=== PATIENT | female | born 1950 | race Caucasian/White ===

== ENCOUNTER → 2023-05-07 11:07 | Outpatient (REF) | payer MEDICARE, SELFPAY ==
--- NOTE | 2023-05-07 11:05 | CA_ITS ---
Transthoracic Echocardiogram Patient (Last, First, Middle): Abbey Macdonald, Gender: Female Date of : 1950 Age: 72 Procedure Date: 05/07/2023 Procedure Type: Transthoracic Echocardiogram Location: [place] Height: 162.56 cm Weight: 60.78 kg BSA: 1.65 m2 Heart Rate: bpm BP: 116 / 60 mmHg Warm In Worker: Referring MD: Symone Mclean MD Chair Car Attendant: Seymour Olivas MD Symptoms: R01.1 CARDIAC MURMUR Study Quality: Good ECG Rhythm: Sinus Conclusions: - 1. Normal LV systolic function with LVEF of 60 65% with impaired relaxation filling pattern 2. Early mild aortic stenosis 3. Normal RV systolic pressure 4. Upper limits of normal ascending aortic size 5. No pericardial effusion Findings Left Ventricle Normal left ventricular size, thickness, and systolic function. The visually estimated ejection fraction is between 60-65%. Spectral Doppler is indicative of an impaired relaxation filling pattern. E/E prime ratio is between 8 and 15 consistent with indeterminate filling pressures. Peak GLS is -17.0%, borderline low. Right Ventricle Normal right ventricular cavity size and systolic function. Atria Both atria are normal in size. There is no evidence of interatrial shunt. Aortic Valve The aortic valve was not well visualized. There is mild calcification of the aortic valve. There is mild thickening of the aortic valve. The peak aortic gradient is 14 mmHg.The mean gradient is 8 mmHg. The aortic valve area is 1.78 cm2. There is no aortic valve regurgitation. Mitral Valve Normal mitral valve structure and function. There is mild mitral annular calcification. There is trace mitral valve regurgitation. There is no mitral valve stenosis. Pulmonic Valve The pulmonic valve is likely normal. Tricuspid Valve Normal tricuspid valve structure. There is trace tricuspid valve regurgitation. The right ventricular systolic pressure is 19 mmHg. Normal right atrial pressure. There is no evidence of pulmonary hypertension. Great Vessels The pulmonary artery was not well visualized. Venous The inferior vena cava is normal in size and collapses greater than 50% with inspiration. Pericardium/Pleural There is no evidence of pericardial effusion. Prior Study Comparison No prior study available for comparison. Measurements 2D Linear Measurements IVSd: 1.01 0.6-0.9/0.6-1.0 cm LVIDd: 4.37 3.9-5.3/4.2-5.9 cm LVIDd Index: 2.65 2.4-3.2/2.2-3.1 cm/m2 LVIDs: 2.69 2.0-3.6 cm LVPWd: 1.00 0.7-1.1 cm Ao Root: 3.10 2.1-3.5 cm LA Diam: 3.50 2.7-3.8/3.0-4.0 cm LAIDs Index: 2.12 1.5-2.3 cm/m2 LV Mass: 183.29 67-162/88-224 g LV Mass Index: 111.08 43-95/49-115 g/m2 LVOT Diam: 2.00 3.0+(-)1.3 cm Mitral Valve MV Pk E: 0.63 MV PK A: 0.91 MV Decel Time: 257.00 E/A: 0.70 E'Lateral: 6.64 E'Medial: 5.33 E/E' Med: 11.70 E/E' Lat: 9.40 PHT: 75.00 MVA PHT: 2.93 Decel [place]: 2.43 Aortic Valve AoV Pk Thai: 1.88 AoV Mn Thai: 1.31 AoV VTI: 0.46 AoV Pk Grad: 14.00 Aov Mn Grad: 8.00 BERNIE Cont.VTI: 1.78 LVOT LVOT Pk Thai: 1.18 LVOT Mn Thai: 0.85 LVOT VTI: 0.26 LVOT Pk Grad: 6.00 LVOT Mn Grad: 3.00 LVOT Diam: 2.00 LVOT Area: 3.14 Diastolic Function MV Pk E: 0.63 MV Pk A: 0.91 E/A: 0.70 E'Medial: 5.33 E/E' Med: 11.70 E' Laterial: 6.64 E/E' Lat: 9.40 Right Ventricle TAPSE (mm): 21.00 Tricuspid Valve TR Pk Thai: 1.98 TR Pk Grad: 16.00 RA Press: 3.00 RVSP: 19.00 Great Vessels Aorta Ao Root-2D: 3.10 2.0-3.7 cm Ao Asc: 3.60 2.1-3.4 cm Pulmonary Valve PV Pk Thai: 0.87 Peak PV Grad: 3.00 Updated in Other Vendor System with Status of Final Seymour Olivas MD electronically signed on 05/07/2023 12:41:03 PM with status of Final
== END ==
LOC: HO.CARD 11:07
PROVIDERS: PCP Internal Medicine; Visit Provider Internal Medicine
DX: R01.1 Cardiac murmur, unspecified (principal)
CPT/HCPCS: 93306; 93356